=== PATIENT | female | born 1955 | race Caucasian/White ===

== ENCOUNTER 2023-08-09 11:56 | Emergency (ER) | payer SELFPAY ==
[~2023-08-09] VITALS: Ht 160 cm; Wt 56.7 kg
[2023-08-09 12:15] VITALS: BP 132/74; TEMP 98.4
[2023-08-09 12:51] VITALS: O2SAT 97
== END 2023-08-09 12:52 | disposition home or self-care (01) ==
LOC: ER 11:59
DX: T16.2XXA Foreign body in left ear, initial encounter (principal); W44.8XXA Other foreign body entering into or through a natural orifice, initial encounter; Y93.89 Activity, other specified; Y92.89 Other specified places as the place of occurrence of the external cause; Y99.8 Other external cause status